=== PATIENT | male | born 1995 | race Caucasian/White ===

== ENCOUNTER 2024-09-27 20:10 | Emergency (ER) | payer OTHER, SELFPAY ==
[2024-09-27 20:21] VITALS: BP 110/76
--- NOTE | 2024-09-28 01:05 | ED.GENMED ---
History of Present Illness
General
Chief Complaint: Extremity Pain (non-traumatic)
Source: patient
Exam Limitations: none
Time Seen by Provider: 09/27/24 23:58
Nursing documentation reviewed up to this point in time: agreed with
History of Present Illness
History of Present Illness:
29-year-old male presenting to the emergency department today with concerns of right leg discomfort after playing soccer. He noticed that he had some bulging of a vein just medial to the right knee. Unsure of any specific injury to the area but
was playing some soccer. Tingling distally into the right leg. Has been able to ambulate denies any chest pain shortness of breath or any history of blood clots.
Review of Systems
Review of Systems
Allergies reviewed?: Yes
All Other Systems: ROS reviewed and negative except as documented in HPI and ROS
Phy Exam
Physical Exam
Physical Exam:
GENERAL: Alert , in no apparent distress
EYE: pupils equal and reactive
NECK: Supple, no significant adenopathy.
ENT: o/p clr, mmm.
CARDIAC: Regular rate and rhythm .
LUNGS: Clear breath sounds bilaterally, no acute respiratory distress, no wheezes/rales/rhonchi
ABDOMEN: Soft, without focal tenderness, no r/g, no cvat
NEUROLOGICAL: Alert and oriented, no focal neuro deficits
SKIN: Small abnormality to the area just medial and distal to the left knee small mount of ecchymosis. Mild tenderness. Warm and dry, skin intact.
MUSCULOSKELETAL: No significant swelling good range of motion of the knee ankle and hip. No edema, well perfused.
PSYCH: Normal and appropriate interaction.
Course
Orders/Labs/Results
Orders:
Orders
09/28/24 00:16
Venous Doppler Lwr Ext Rt [[facility] Venous LOWER Ext RT] Urgent
Comment:
Reason For Exam: right leg pain swelling
Vital Signs
Initial and Last Documented VS:
Initial Vital Signs
Temp Pulse Resp BP Pulse Ox
98 F 97 16 110/76 97
09/27/24 20:21 09/27/24 20:21 09/27/24 20:21 09/27/24 20:21 09/27/24 20:21
Last Documented Vital Signs
Temp Pulse Resp BP Pulse Ox
98 F 97 18 110/76 97
09/27/24 20:21 09/27/24 20:21 09/28/24 00:39 09/27/24 20:21 09/28/24 01:07
MDM/Problems Addressed
MDM/Problems Addressed:
29-year-old male presenting to the emergency department today with concerns of what he believes is a bulging vein to the right lower extremity. Some tingling to the area distal as well. Normal neurovascular examination here. Good range of motion
of all joints. No redness or warmth. Ultrasound without evidence of DVT. Otherwise no signs of any emergent process stable for discharge and outpatient follow-up. Return precautions given.
*Pulse Oximetry
SaO2: 97
Oxygen Mode of Delivery: Room air
Patient hypoxic: no (97)
*Critical Care Note
Total Time (30-74mins, 75-104mins- exclusive of procedures): Not Applicable
ED Attending Note
-
Portions of this chart may have been created with voice recognition software.� Occasional wrong word or��sound alike� substitutions may have occurred due to the inherent limitations of voice recognition software.
Discharge Plan
Departure
Patient Disposition: Home (Routine Discharge)
Date of Disposition: 09/28/24
Time of Disposition: 02:37
Patient with high blood pressure during this ER visit?: No
Condition: Good
Covid-19: Not Applicable
Discharge Problem:
Acute leg pain
Instructions: Muscle and Bone Pain (DC)
Prescriptions:
No Action
No Current Medications
0
Activity Restrictions/Additional Instructions:
You came to the emergency department today for concerns of leg pain.. Reassuring assessment with normal ultrasound. Please rest elevate the area. Return for any worsening, new or concerning symptoms.
Interventions
Interventions:
*Risk Screen - Suicide Last Done: 09/27/24 20:21
*Neglect/Abuse Screening Last Done: 09/27/24 20:21
ED-Skin Assessment Last Done: 09/28/24 00:30
ED-Peripheral Vascular Assessment Last Done: 09/28/24 00:30
ED-Musculoskeletal Assessment Last Done: 09/28/24 00:30
Discharge Date and Time
Print Language: UKRA[place]
[2024-09-28 02:45] VITALS: BP 131/78
== END 2024-09-28 02:46 | disposition home or self-care (01) ==
LOC: EMR 20:10
PROVIDERS: EMERGENCY PHYSICIAN Emergency Medicine
DX: M79.604 Pain in right leg (principal); R22.41 Localized swelling, mass and lump, right lower limb
CPT/HCPCS: 99284; 93971